=== PATIENT | male | born 1960 | race Caucasian/White ===

== ENCOUNTER 2020-09-08 08:29 | Outpatient (REF) | payer BC, SELFPAY ==
--- NOTE | ~2020-09-08 | CT_ITS ---
EXAMINATION: CT SINUS WITHOUT CONTRAST CLINICAL INFORMATION: Sinonasal polyps. COMPARISON: None TECHNIQUE: Axial 2 mm thin and reformatted 2 mm thin sagittal and coronal images of the sinuses were obtained. This CT examination was performed using dose optimization techniques as appropriate, variously including the following: *Automated exposure control *Adjustment of mA and/or kV according to patient size (this includes techniques or standardized protocols for targeted exams where dose is matched to indication/reason for exam; i.e. extremities or head) *Use of iterative reconstruction technique DLP: 106 mGy-cm FINDINGS: FRONTAL, MAXILLARY SINUSES AND DRAINAGE PATHWAYS: There is mild mucoperiosteal thickening left frontal, left ethmoid and moderate mucoperiosteal thickening of the left maxillary sinuses. The rest of the paranasal sinuses are well-aerated and clear. The frontoethmoidal recess and ostiomeatal complex are widely patent. ETHMOID SINUSES: The ethmoid roofs are symmetric, with olfactory fossa depth of 0.4 cm on the right and 0.4 cm on the left. There is mild mucoperiosteal thickening of left anterior ethmoid sinus. SPHENOID SINUSES AND DRAINAGE PATHWAYS: Normal. The sphenoid ostia are patent. The carotid canals are covered by bone. NASAL CAVITY/NASOPHARYNX: The nasal cavity is clear. There is no nasal septal deviation/spurring. The nasopharynx is symmetric. ADDITIONAL RELEVANT FINDINGS: No periapical disease is seen. The TMJs articulate normally. The orbits and skull base soft tissues are unremarkable. The middle ear cavities and mastoid air cells are clear. Limited evaluation demonstrates no acute intracranial findings. CT/CT sinus wo con IMPRESSION: There are chronic left frontal, left anterior ethmoid and maxillary sinus inflammatory changes. The drainage pathways are widely patent. The rest of the paranasal sinuses are clear.
== END 2020-09-08 08:30 | disposition home or self-care (01) ==
LOC: HO.CT 08:29
PROVIDERS: Visit Provider Otolaryngology
DX: J33.1 Polypoid sinus degeneration (principal)
CPT/HCPCS: 70486